=== PATIENT | male | born 1995 | race Two or more races ===

== ENCOUNTER 2022-04-19 08:53 | Emergency (ER) | payer OTHER ==
[~2022-04-19] VITALS: Ht 185.4 cm; Wt 61.2 kg
== END 2022-04-19 14:43 | disposition home or self-care (01) ==
LOC: ER 08:53
DX: K80.20 Calculus of gallbladder without cholecystitis without obstruction (principal)

== ENCOUNTER 2023-01-13 23:15 | Emergency (ER) | payer OTHER ==
[~2023-01-13] VITALS: Ht 185.4 cm; Wt 61.2 kg
== END 2023-01-14 02:51 | disposition home or self-care (01) ==
LOC: ER 23:15
DX: S80.01XA Contusion of right knee, initial encounter (principal); W19.XXXA Unspecified fall, initial encounter; Y93.89 Activity, other specified; Y92.89 Other specified places as the place of occurrence of the external cause; Y99.9 Unspecified external cause status

== ENCOUNTER 2023-07-24 02:54 | Emergency (ER) | payer OTHER ==
[~2023-07-24] VITALS: Ht 185.4 cm; Wt 62.1 kg
[2023-07-24] MEDS ORDERED: BENADRYL25 MG PO (08:25)
[2023-07-24] MEDS ORDERED: MEDROL8 MG PO (08:25)
[2023-07-24] MEDS ORDERED: DIPROLENE 0.05%15 GM TOP (08:25)
== END 2023-07-24 08:41 ==
LOC: ER 02:55
DX: L29.8 Other pruritus (principal); T78.40XA Allergy, unspecified, initial encounter

== ENCOUNTER 2024-01-15 20:19 | Emergency (ER) | payer OTHER ==
[~2024-01-15] VITALS: Ht 185.4 cm; Wt 63.5 kg
[~2024-01-15 20:19] MED LIST: BENADRYL25 MG PO; BETAMETHASONE D15 G2 TOP; DIPROLENE 0.05%15 GM TOP; MEDROL8 MG PO
[2024-01-15] MEDS ORDERED: METOCLOPRAMIDE HCL 5 MG/ML VIAL IM STA (21:57)
[2024-01-15] MEDS ORDERED: RINGERS SOLUTION,LACTATED 500 ML IV STA (22:00)
[2024-01-15] MEDS ORDERED: METOCLOPRAMIDE HCL 5 MG/ML VIAL ONE (22:14)
[2024-01-15] MEDS ORDERED: BISMUTH SUBSALICYLATE 524 MG/30 ML BLIST.PACK PO STA (22:48)
[2024-01-15] MEDS ORDERED: LOPERAMIDE HCL 2 MG CAPSULE PO STA (22:48)
[2024-01-15 23:16] LABS: HEMATOCRIT 41.7 % (39.0-48.0); HEMOGLOBIN 14.4 g/dL (13-16.00); MEAN CELL VOLUME 91.9 fL (80.0-100.00); MEAN CORPUSCULAR HEMOGLOBIN 31.8 pg (27.00-32.0); MEAN CORPUSCULAR HGB CONC 34.6 g/dl (32.0-36.0); PLATELET COUNT 245 K/uL (150-450); RED BLOOD COUNT 4.54 M/uL (4.00-6.00); RED CELL DISTRIBUTION WIDTH 13.3 % (11.5-14.5)
[2024-01-15] MEDS ORDERED: LOPERAMIDE HCL 2 MG CAPSULE PO ONE (23:35)
[2024-01-15] MEDS ORDERED: BISMUTH SUBSALICYLATE 524 MG/30 ML BLIST.PACK PO ONE (23:35)
== END 2024-01-16 00:14 | disposition home or self-care (01) ==
LOC: ER 20:19
DX: U07.1 COVID-19 (principal); K52.89 Other specified noninfective gastroenteritis and colitis